=== PATIENT | male | born 1945 | race Caucasian/White ===

== ENCOUNTER 2017-08-14 11:54 | Emergency (ER) | payer MEDICARE ==
[~2017-08-14] VITALS: Ht 198.1 cm; Wt 144.0 kg
[~2017-08-14 11:54] MED LIST: ASPI-119 PO; HCTZ50TA OR; LISI-363 PO; METO50CR OR; NIAC500T34 PO; OCUVTAB PO; OMEG500C2 OR; PROV200T11 PO; TAMS5CAP OR; VITA100018 PO
[2017-08-14 12:29] VITALS: BP 126/62; PULSE 44; RESP 16; TEMP 97.5; O2SAT 99
[2017-08-14] MEDS ORDERED: TAMS0.4C4 PO (13:24)
[2017-08-14] MEDS ORDERED: LISI-515 PO (13:24)
[2017-08-14] MEDS ORDERED: METF500T PO (13:24)
[2017-08-14] MEDS ORDERED: METO1TAB42 PO (13:24)
--- NOTE | 2017-08-14 14:35 | PD ---
HPI Chief Complaint: Bite or Sting Time Seen by Provider: 14:24 Travel History International Travel<30 days: No Contact w/Intl Traveler<30days: No Traveled to known affect area: No History of Present Illness HPI Patient comes emergency Department complaining of a cat Bite to the right hand. Patient states he was at the vet with his cat when trying to procedure that irritated it causing his cat to bite his hand. Reports cleaning the wound with hydroperoxide prior to coming to the emergency department. Reports tetanus shot is not up-to-date. Denies any pain with this. Reports cats rabies vaccination is up-to-date. Patient is right-hand dominant. Denies anything making symptoms better or worse. PFSH Past Medical History Hx Anticoagulant Therapy: Yes Cancer: Yes (Prostate) Diabetes: Yes Immunizations Current: Yes Past Surgical History Abdominal Surgery: Yes (bilateral inguinal and umbilical hernia repairs) Social History Alcohol Use: Yes (socially) Tobacco Use: No Substance Use: No Allergies-Medications (Allergen,Severity, Reaction): Coded Allergies: hylan G-F 20 (Unverified Adverse Reaction, Unknown, Edema, 08/14/17) Uncoded Allergies: FIBERGLASS SURGICAL TAPE (Adverse Reaction, Unknown, 10/14/05) Reported Meds & Prescriptions Reported Meds & Active Scripts Active Augmentin (Amoxicillin-Clavulanate) 875-125 Mg Tab 1 Tab PO BID 10 Days Reported Tamsulosin (Tamsulosin HCl) 0.4 Mg Cap 0.4 Mg PO HS Metformin (Metformin HCl) 500 Mg Tab 500 Mg PO DAILY With a meal Metoprolol Succinate ER 24 HR (Metoprolol Succinate) 25 Mg Tab 25 Mg PO HS Lisinopril 20 Mg Tab 20 Mg PO DAILY Review of Systems Except as stated in HPI: all other systems reviewed are Neg Physical Exam Narrative GENERAL: Well-developed, overly nourished, in no acute distress, and non-ill appearing. SKIN: Small superficial Bite noted over dorsal aspect right hand first distal metacarpal. It is nontender and without crepitus. There is no signs of foreign body. HEAD: Atraumatic. Normocephalic. EYES: Pupils equal and round. EOMI. No scleral icterus. No injection or drainage. ENT: No nasal bleeding or discharge. Mucous membranes pink and moist. NECK: Trachea midline. Supple. No nuclear rigidity. RESPIRATORY: No accessory muscle use. No respiratory distress. MUSCULOSKELETAL: No obvious deformities. No clubbing. No cyanosis. No edema. Full range of motion. NEUROLOGICAL: Awake and alert. No obvious cranial nerve deficits. Motor grossly within normal limits. Normal speech. PSYCHIATRIC: Appropriate mood and affect; insight and judgment normal. Data Data Last Documented VS Vital Signs Date Time Temp Pulse Resp B/P (MAP) Pulse Ox O2 Delivery O2 Flow Rate FiO2 08/14/17 12:29 97.5 44 16 126/62 (83) 99 Orders Orders Ed Discharge Order (08/14/17 14:31) Tetanus/Diphtheria Tox Adult (Tetanus/Di (08/14/17 14:45) MDM Medical Decision Making Medical Screen Exam Complete: Yes Emergency Medical Condition: Yes Differential Diagnosis Bite, laceration, abrasion, contusion Narrative Course The patient suffered animal bite wound. The animal is domesticated, vaccinations are reported to be UTD and the animal can be watched. There is no evidence of deep tissue involvement and/or local tendon involvement. There was no evidence to suggest foreign bodies. Visual and tactile exams were unremarkable. There was no evidence of neurovascular injury as well. The patients wounds were irrigated copiously, cleaned and dressed. Rabies prophylaxis was discussed with the patient and exposure appears low risk and not indicated. The patient was given signs and symptom warnings for infection, such as increasing pain, pain with movement of involved extremity,redness, swelling, associated heat, pus or fever. The patient was given antibiotics to cover mouth joaquín and instructions for timely follow up for wound recheck. The patient agreed with plan of care. Animal control was contacted per hospital protocol. Patient in no obvious distress upon re-evaluation. Patient was asked if they wanted to speak to my attending, which the patient did not wish to do at this time. Any questions/concerns in reference to patient diagnosis/condition discussed and clarified prior to patient's discharge. Reinforced sheer importance of close follow up with patient's primary physician or primary care clinic. Instructed patient to return to ED immediately, if symptoms return/ worsen. Patient showed understanding of above instructions. Further instructions and recommendations were detailed in discharge paperwork. Patient ambulated without difficulty out of ED at discharge. Diagnosis Primary Impression: Cat bite of hand Qualified Codes: S61.451A - Open bite of right hand, initial encounter; W55.01XA - Bitten by cat, initial encounter Patient Instructions: Animal Bite (ED), General Instructions Additional Instructions: Follow-up with your primary care physician. Take all medication as prescribed. Return to the emergency department if symptoms get worse. Med/Other Pt SpecificInfo: Prescription(s) given Scripts Amoxicillin-Clavulanate (Augmentin) 875-125 Mg Tab 1 TAB PO BID for Infection for 10 Days, #20 TAB 0 Refills Prov: Nolberto Felder MD 08/14/17 Disposition: 01 DISCHARGE HOME Condition: Stable Joni Medeiros Aug 14, 2017 14:35
[2017-08-14] MEDS ORDERED: AUGM875T3 PO (14:36)
[2017-08-14] MEDS ORDERED: TETANUS/DIPHTHERIA TOXOID ADULT 0.5 ML VIAL IM ONE (14:45)
== END 2017-08-14 15:07 | disposition home or self-care (01) ==
LOC: PHEFT 11:54
DX: S61.451A Open bite of right hand, initial encounter (principal); W55.01XA Bitten by cat, initial encounter; E11.9 Type 2 diabetes mellitus without complications; Z79.84 Long term (current) use of oral hypoglycemic drugs; Z23 Encounter for immunization
CPT/HCPCS: 90471; 90714